=== PATIENT | female | born 1935 | race Caucasian/White ===

== ENCOUNTER 2018-03-05 11:19 | Outpatient (CLI) | payer MEDICARE ==
--- NOTE | 2018-03-05 12:44 | XRAY Report ---
Procedure Date: 03/05/2018 Accession Number: [id number] / [id number] Procedure: XR - Calcaneus RT CPT Code: FULL RESULT: EXAM: Calcaneus RT DATE: 03/05/2018 11:58 AM CLINICAL HISTORY: PAIN EDEMA POSTERIOR R CALCANOUS COMPARISON: None. TECHNIQUE: 2 views. FINDINGS: Bones: There is no fracture or dislocation. Minimal posterior calcaneal enthesopathy is identified. Joints:Normal. No subluxations. Soft Tissues: Mild soft tissue swelling is seen at the distal insertion site of the Achilles tendon. IMPRESSION: Minimal posterior calcaneal enthesopathy with soft tissue swelling over the distal insertion of the Achilles tendon. RADIA
== END 2018-03-05 11:20 | disposition home or self-care (01) ==
LOC: DI 11:19
PROVIDERS: ATTEND Podiatrist
DX: M77.51 Other enthesopathy of right foot and ankle (principal); R22.41 Localized swelling, mass and lump, right lower limb

== ENCOUNTER 2018-04-19 10:46 | Emergency (ER) | payer MEDICARE ==
--- NOTE | 2018-04-19 12:34 | ED Physician Documentation ---
PD HPI CHEST PAIN - Stated complaint Stated Complaint: SOA - Chief complaint Chief Complaint: Cardiac - History obtained from History obtained from: Patient - History of Present Illness Timing - onset: Last night (She has been short of breath for a few days. Last night at 4 AM she had a brief episode of chest pain radiating to the back. Her medics were summoned and she was noted to be in A. fib which he does not have a prior history of. She declined transport to the hospital because she felt much better. However when she called her physician's office to make an appointment today and encouraged her to come to the ER for an evaluation. She feels fine now and she is not actively short of breath. She denies pedal edema or calf pain. She has no history of heart problems.) Review of Systems Constitutional: denies: Fever, Chills, Fatigue Cardiac: denies: Palpitations, Pedal edema, Calf pain Respiratory: reports: Dyspnea. denies: Cough, Hemoptysis, Wheezing GI: denies: Abdominal Pain, Nausea, Vomiting PD PAST MEDICAL HISTORY - Allergies Allergies/Adverse Reactions: Allergies Allergy/AdvReac Type Severity Reaction Status Date / Time codeine AdvReac Itching Verified 04/19/18 10:52 PD ED PE NORMAL - Vitals Vital signs reviewed: Yes - General General: Alert and oriented X 3, No acute distress - Neck Neck: Supple, no meningeal sign, No bony TTP - Cardiac Cardiac: RRR, No murmur - Respiratory Respiratory: No respiratory distress, Clear bilaterally - Abdomen Abdomen: Non tender - Extremities Extremities: No edema, No calf tenderness / cord - Neuro Neuro: Alert and oriented X 3, Normal speech Results - Vitals Vitals: Vital Signs - 24 hr 04/19/18 04/19/18 04/19/18 10:48 13:31 13:38 Temperature 36 C L 36.5 C Heart Rate 58 L 51 L 50 L Respiratory 16 16 16 Rate Blood Pressure 122/69 145/64 H 118/60 O2 Saturation 99 96 98 Oxygen O2 Source Room air - EKG (time done) 1102 Rate: Rate (enter#) (57) Rhythm: NSR Intervals: Prolonged NC (238msec) QRS: Normal Ischemia: Normal ST segments Computer interpretation: Agree with computer - Labs Labs: Laboratory Tests 04/19/18 04/19/18 04/19/18 12:39 12:39 12:39 WBC 7.2 RBC 4.63 Hgb 14.4 Hct 42.3 MCV 91.3 MCH 31.1 H MCHC 34.1 RDW 13.8 Plt Count 247 MPV 7.2 L Neut # (Auto) 4.7 Lymph # (Auto) 2.0 [place] # (Auto) 0.3 Eos # (Auto) 0.1 Baso # (Auto) 0.1 Absolute Nucleated RBC 0.00 Nucleated RBC % 0.0 Sodium 138 Potassium 4.5 Chloride 101 Carbon Dioxide 28 Anion Gap 9.0 BUN 11 Creatinine 0.6 Estimated GFR (MDRD) 96 Glucose 105 H Calcium 9.2 Magnesium 2.3 Total Bilirubin 1.0 AST 20 ALT 15 Alkaline Phosphatase 60 Troponin I < 0.04 Total Protein 6.8 Albumin 4.2 Globulin 2.6 Albumin/Globulin Ratio 1.6 Lipase 35 TSH 04/19/18 12:39 WBC RBC Hgb Hct MCV MCH MCHC RDW Plt Count MPV Neut # (Auto) Lymph # (Auto) [place] # (Auto) Eos # (Auto) Baso # (Auto) Absolute Nucleated RBC Nucleated RBC % Sodium Potassium Chloride Carbon Dioxide Anion Gap BUN Creatinine Estimated GFR (MDRD) Glucose Calcium Magnesium Total Bilirubin AST ALT Alkaline Phosphatase Troponin I Total Protein Albumin Globulin Albumin/Globulin Ratio Lipase TSH 3.07 PD MEDICAL DECISION MAKING - ED course ED course: She had an episode of A. fib last night. There is no symptoms now, and her evaluation is normal. Primary care follow-up was advised for consideration for further testing and anticoagulation. - Sepsis Event Vital Signs: Vital Signs - 24 hr 04/19/18 04/19/18 04/19/18 10:48 13:31 13:38 Temperature 36 C L 36.5 C Heart Rate 58 L 51 L 50 L Respiratory 16 16 16 Rate Blood Pressure 122/69 145/64 H 118/60 O2 Saturation 99 96 98 Oxygen O2 Source Room air Departure - Departure Disposition: 01 Home, Self Care Clinical Impression: Atrial fibrillation, Essential hypertension Condition: Good Record reviewed to determine appropriate education?: Yes Instructions: Atrial Fibrillation Dc Comments: Call your doctor to arrange a follow-up appointment, make the next available appointment. In the interim, return anytime if worse or if new symptoms develop. Discharge Date/Time: 04/19/18 13:38
[2018-04-19 12:47] LABS: BASOPHILS # (AUTO) 0.1 10^3/uL (0.0-0.1); EOSINOPHILS # (AUTO) 0.1 10^3/uL (0.0-0.7); EOSINOPHILS % (AUTO) 1.2 %; HGB - HEMOGLOBIN 14.4 g/dL (12.0-16.0); LYMPHOCYTES % (AUTO) 27.5 %; MEAN CORPUSCULAR HEMOGLOBIN 31.1 pg (27.0-31.0); MEAN CORPUSCULAR HGB CONC 34.1 g/dL (32.0-36.0); MEAN CORPUSCULAR VOLUME 91.3 fL (81.0-99.0); MEAN PLATELET VOLUME 7.2 fL (7.9-10.8); MONOCYTES # (AUTO) 0.3 10^3/uL (0.0-1.0); MONOCYTES % (AUTO) 4.7 %; NEUTROPHILS # (AUTO) 4.7 10^3/uL (1.5-6.6); NEUTROPHILS % (AUTO) 65.6 %; PLT - PLATELET COUNT 247 10^3/uL (130-450); RED BLOOD COUNT 4.63 10^6/uL (4.20-5.40); RED CELL DISTRIBUTION WIDTH 13.8 % (12.0-15.0); WHITE BLOOD COUNT 7.2 x10^3/uL (4.8-10.8)
[2018-04-19 13:00] LABS: ALBUMIN 4.2 g/dL (3.2-5.5); ALBUMIN/GLOBULIN RATIO 1.6 (1.0-2.2); CREATININE 0.6 mg/dL (0.4-1.0); MAGNESIUM 2.3 mg/dL (1.7-2.8); TOTAL PROTEIN 6.8 g/dL (6.7-8.2)
[2018-04-19 13:26] LABS: CALCIUM 9.2 mg/dL (8.5-10.3)
--- NOTE | 2018-04-19 13:31 | XRAY Report ---
Reason: dyspnea Procedure Date: 04/19/2018 Accession Number: [id number] / [id number] Procedure: XR - Chest 2 View X-Ray CPT Code: 31102 FULL RESULT: EXAM: CHEST RADIOGRAPHY EXAM DATE: 04/19/2018 01:17 PM. CLINICAL HISTORY: Dyspnea. COMPARISON: XR CHEST 1 VIEWS 02/09/2011. TECHNIQUE: 2 views. FINDINGS: Lungs/Pleura: There is very mild blunting of the posterior right costophrenic angle. There is no consolidative process. Negative for pulmonary edema and pneumothorax. The lung volumes are normal. Mediastinum: The heart size is normal. There is mild aortic arch atherosclerotic calcification. Other: None. IMPRESSION: 1. Very small right-sided pleural effusion. Otherwise negative. RADIA
[2018-04-19 13:39] VITALS: BP 118/60
== END 2018-04-19 13:38 | disposition home or self-care (01) ==
LOC: ED 10:46
DX: I48.91 Unspecified atrial fibrillation (principal); I10 Essential (primary) hypertension
CPT/HCPCS: 36415; 71046; 80053; 83690; 83735; 84443; 84484; 85025; 93005; 99283

== ENCOUNTER 2018-10-01 08:31 | Outpatient (CLI) | payer MEDICARE | END 2018-10-01 08:32 | LOC: LAB.F 08:31 | PROVIDERS: ATTEND Internal Medicine Cardiovascular Disease | DX: I48.1 Persistent atrial fibrillation (principal) | CPT/HCPCS: 36415; 85610 ==

== ENCOUNTER 2018-10-04 09:06 | Outpatient (CLI) | payer MEDICARE | END 2018-10-04 09:07 | disposition home or self-care (01) | LOC: LAB.F 09:06 | PROVIDERS: ATTEND Internal Medicine Cardiovascular Disease | DX: I48.1 Persistent atrial fibrillation (principal) | CPT/HCPCS: 85610 ==

== ENCOUNTER 2018-10-08 08:39 | Outpatient (CLI) | payer MEDICARE | END 2018-10-08 08:40 | disposition home or self-care (01) | LOC: LAB.F 08:39 | PROVIDERS: ATTEND Internal Medicine Cardiovascular Disease | DX: I48.1 Persistent atrial fibrillation (principal) | CPT/HCPCS: 85610 ==

== ENCOUNTER 2018-10-11 09:59 | Outpatient (CLI) | payer MEDICARE | END 2018-10-11 10:00 | disposition home or self-care (01) | LOC: LAB.F 09:59 | PROVIDERS: ATTEND Internal Medicine Cardiovascular Disease | DX: I48.1 Persistent atrial fibrillation (principal) | CPT/HCPCS: 85610 ==

== ENCOUNTER 2018-10-23 09:46 | Outpatient (CLI) | payer MEDICARE | END 2018-10-23 09:47 | disposition home or self-care (01) | LOC: LAB.F 09:46 | PROVIDERS: ATTEND Internal Medicine Cardiovascular Disease | DX: I48.1 Persistent atrial fibrillation (principal) | CPT/HCPCS: 85610 ==

== ENCOUNTER 2018-10-30 09:18 | Outpatient (CLI) | payer MEDICARE | END 2018-10-30 09:19 | disposition home or self-care (01) | LOC: LAB.F 09:18 | PROVIDERS: ATTEND Internal Medicine Cardiovascular Disease | DX: I48.1 Persistent atrial fibrillation (principal) | CPT/HCPCS: 85610 ==

== ENCOUNTER 2018-11-06 09:51 | Outpatient (CLI) | payer MEDICARE | END 2018-11-06 09:52 | disposition home or self-care (01) | LOC: LAB.F 09:51 | PROVIDERS: ATTEND Internal Medicine Cardiovascular Disease | DX: I48.1 Persistent atrial fibrillation (principal) | CPT/HCPCS: 85610 ==

== ENCOUNTER 2018-11-13 08:21 | Outpatient (CLI) | payer MEDICARE | END 2018-11-13 08:22 | disposition home or self-care (01) | LOC: LAB.F 08:21 | PROVIDERS: ATTEND Internal Medicine Cardiovascular Disease | DX: I48.1 Persistent atrial fibrillation (principal) | CPT/HCPCS: 85610 ==

== ENCOUNTER 2018-11-22 08:01 | Outpatient (CLI) | payer MEDICARE | END 2018-11-22 08:02 | disposition home or self-care (01) | LOC: LAB.F 08:01 | PROVIDERS: ATTEND Internal Medicine Cardiovascular Disease | DX: I48.1 Persistent atrial fibrillation (principal) | CPT/HCPCS: 85610 ==

== ENCOUNTER 2018-12-06 08:08 | Outpatient (CLI) | payer MEDICARE | END 2018-12-06 08:09 | disposition home or self-care (01) | LOC: LAB.F 08:08 | PROVIDERS: ATTEND Internal Medicine Cardiovascular Disease | DX: I48.1 Persistent atrial fibrillation (principal) | CPT/HCPCS: 85610 ==

== ENCOUNTER 2018-12-21 10:09 | Outpatient (CLI) | payer MEDICARE | END 2018-12-21 10:10 | disposition home or self-care (01) | LOC: LAB.F 10:09 | PROVIDERS: ATTEND Internal Medicine Cardiovascular Disease | DX: I48.1 Persistent atrial fibrillation (principal) | CPT/HCPCS: 85610 ==

== ENCOUNTER 2019-01-04 10:23 | Outpatient (CLI) | payer MEDICARE | END 2019-01-04 10:24 | disposition home or self-care (01) | LOC: LAB.F 10:23 | PROVIDERS: ATTEND Internal Medicine Cardiovascular Disease | DX: I48.1 Persistent atrial fibrillation (principal) | CPT/HCPCS: 85610 ==

== ENCOUNTER 2019-01-18 10:26 | Outpatient (CLI) | payer MEDICARE | END 2019-01-18 10:27 | disposition home or self-care (01) | LOC: LAB.F 10:26 | PROVIDERS: ATTEND Internal Medicine Cardiovascular Disease | DX: I48.1 Persistent atrial fibrillation (principal) | CPT/HCPCS: 85610 ==

== ENCOUNTER 2019-01-21 09:12 | Outpatient (CLI) | payer MEDICARE | END 2019-01-21 09:13 | disposition home or self-care (01) | LOC: LAB.F 09:12 | PROVIDERS: ATTEND Internal Medicine Cardiovascular Disease | DX: I48.1 Persistent atrial fibrillation (principal) | CPT/HCPCS: 85610 ==

== ENCOUNTER 2019-02-04 10:51 | Outpatient (CLI) | payer MEDICARE | END 2019-02-04 10:52 | disposition home or self-care (01) | LOC: LAB.F 10:51 | PROVIDERS: ATTEND Internal Medicine Cardiovascular Disease | DX: I48.91 Unspecified atrial fibrillation (principal) | CPT/HCPCS: 85610 ==

== ENCOUNTER 2019-02-18 09:27 | Outpatient (CLI) | payer MEDICARE | END 2019-02-18 09:28 | disposition home or self-care (01) | LOC: LAB.S 09:27 | PROVIDERS: ATTEND Internal Medicine Cardiovascular Disease | DX: I48.1 Persistent atrial fibrillation (principal) | CPT/HCPCS: 85610 ==

== ENCOUNTER 2019-03-25 09:16 | Outpatient (CLI) | payer MEDICARE | END 2019-03-25 09:17 | disposition home or self-care (01) | LOC: LAB.S 09:16 | PROVIDERS: ATTEND Internal Medicine Cardiovascular Disease | DX: I48.1 Persistent atrial fibrillation (principal) | CPT/HCPCS: 85610 ==

== ENCOUNTER 2019-04-22 09:44 | Outpatient (CLI) | payer MEDICARE | END 2019-04-22 09:45 | disposition home or self-care (01) | LOC: LAB.S 09:44 | PROVIDERS: ATTEND Internal Medicine Cardiovascular Disease | DX: I48.1 Persistent atrial fibrillation (principal) | CPT/HCPCS: 85610 ==

== ENCOUNTER 2019-05-13 11:11 | Outpatient (CLI) | payer MEDICARE | END 2019-05-13 11:12 | disposition home or self-care (01) | LOC: LAB.S 11:11 | PROVIDERS: ATTEND Internal Medicine Cardiovascular Disease | DX: I48.91 Unspecified atrial fibrillation (principal) | CPT/HCPCS: 85610 ==

== ENCOUNTER 2019-05-27 09:45 | Outpatient (CLI) | payer MEDICARE | END 2019-05-27 09:46 | disposition home or self-care (01) | LOC: LAB.S 09:45 | PROVIDERS: ATTEND Internal Medicine Cardiovascular Disease | DX: I48.91 Unspecified atrial fibrillation (principal) | CPT/HCPCS: 85610 ==

== ENCOUNTER 2019-06-10 09:40 | Outpatient (CLI) | payer MEDICARE | END 2019-06-10 09:41 | disposition home or self-care (01) | LOC: LAB.S 09:40 | PROVIDERS: ATTEND Internal Medicine Cardiovascular Disease | DX: I48.91 Unspecified atrial fibrillation (principal) | CPT/HCPCS: 85610 ==

== ENCOUNTER 2019-07-01 09:29 | Outpatient (CLI) | payer MEDICARE | END 2019-07-01 09:30 | disposition home or self-care (01) | LOC: LAB.S 09:29 | PROVIDERS: ATTEND Internal Medicine Cardiovascular Disease | DX: I48.91 Unspecified atrial fibrillation (principal) | CPT/HCPCS: 85610 ==

== ENCOUNTER 2019-07-29 09:07 | Outpatient (CLI) | payer MEDICARE | END 2019-07-29 09:08 | disposition home or self-care (01) | LOC: LAB.S 09:07 | PROVIDERS: ATTEND Internal Medicine Cardiovascular Disease | DX: I48.91 Unspecified atrial fibrillation (principal) | CPT/HCPCS: 85610 ==

== ENCOUNTER 2019-08-26 11:09 | Outpatient (CLI) | payer MEDICARE | END 2019-08-26 11:10 | disposition home or self-care (01) | LOC: LAB.S 11:09 | PROVIDERS: ATTEND Internal Medicine Cardiovascular Disease | DX: I48.91 Unspecified atrial fibrillation (principal) | CPT/HCPCS: 85610 ==

== ENCOUNTER 2019-10-01 09:15 | Outpatient (CLI) | payer MEDICARE | END 2019-10-01 09:16 | disposition home or self-care (01) | LOC: LAB.S 09:15 | PROVIDERS: ATTEND Internal Medicine Cardiovascular Disease | DX: I48.91 Unspecified atrial fibrillation (principal) | CPT/HCPCS: 85610 ==

== ENCOUNTER 2019-10-15 09:16 | Outpatient (CLI) | payer MEDICARE | END 2019-10-15 09:17 | disposition home or self-care (01) | LOC: LAB.S 09:16 | PROVIDERS: ATTEND Internal Medicine Cardiovascular Disease | DX: I48.91 Unspecified atrial fibrillation (principal) | CPT/HCPCS: 85610 ==

== ENCOUNTER 2019-11-12 12:44 | Outpatient (CLI) | payer MEDICARE | END 2019-11-12 12:45 | disposition home or self-care (01) | LOC: LAB 12:44 | PROVIDERS: ATTEND Internal Medicine Cardiovascular Disease | DX: I48.91 Unspecified atrial fibrillation (principal) | CPT/HCPCS: 85610 ==

== ENCOUNTER 2019-12-03 10:02 | Outpatient (CLI) | payer MEDICARE | END 2019-12-03 10:03 | disposition home or self-care (01) | LOC: LAB 10:02 | PROVIDERS: ATTEND Internal Medicine Cardiovascular Disease | DX: I48.91 Unspecified atrial fibrillation (principal) | CPT/HCPCS: 85610 ==

== ENCOUNTER 2019-12-24 10:50 | Outpatient (CLI) | payer MEDICARE | END 2019-12-24 10:51 | disposition home or self-care (01) | LOC: LAB 10:50 | PROVIDERS: ATTEND Internal Medicine Cardiovascular Disease | DX: I48.91 Unspecified atrial fibrillation (principal) | CPT/HCPCS: 85610 ==

== ENCOUNTER 2020-02-11 08:59 | Outpatient (CLI) | payer MEDICARE | END 2020-02-11 09:00 | disposition home or self-care (01) | LOC: LAB.S 08:59 | PROVIDERS: ATTEND Internal Medicine Cardiovascular Disease | DX: I48.91 Unspecified atrial fibrillation (principal) | CPT/HCPCS: 85610 ==

== ENCOUNTER 2020-03-11 09:41 | Outpatient (CLI) | payer MEDICARE | END 2020-03-11 09:42 | disposition home or self-care (01) | LOC: LAB.S 09:41 | PROVIDERS: ATTEND Internal Medicine Cardiovascular Disease | DX: I48.91 Unspecified atrial fibrillation (principal) | CPT/HCPCS: 85610 ==

== ENCOUNTER 2020-04-07 10:24 | Outpatient (CLI) | payer MEDICARE | END 2020-04-07 10:25 | disposition home or self-care (01) | LOC: LAB.S 10:24 | PROVIDERS: ATTEND Internal Medicine Cardiovascular Disease | DX: I48.91 Unspecified atrial fibrillation (principal) | CPT/HCPCS: 85610 ==

== ENCOUNTER 2020-06-02 10:36 | Outpatient (CLI) | payer MEDICARE | END 2020-06-02 10:37 | disposition home or self-care (01) | LOC: LAB.S 10:36 | PROVIDERS: ATTEND Internal Medicine Cardiovascular Disease | DX: I48.91 Unspecified atrial fibrillation (principal) | CPT/HCPCS: 85610 ==

== ENCOUNTER 2020-06-23 10:26 | Outpatient (CLI) | payer MEDICARE | END 2020-06-23 10:27 | disposition home or self-care (01) | LOC: LAB.S 10:26 | PROVIDERS: ATTEND Internal Medicine Cardiovascular Disease | DX: I48.91 Unspecified atrial fibrillation (principal) | CPT/HCPCS: 85610 ==

== ENCOUNTER 2020-07-21 09:08 | Outpatient (CLI) | payer MEDICARE | END 2020-07-21 09:09 | disposition home or self-care (01) | LOC: LAB.S 09:08 | PROVIDERS: ATTEND Internal Medicine Cardiovascular Disease | DX: I48.91 Unspecified atrial fibrillation (principal) | CPT/HCPCS: 85610 ==

== ENCOUNTER 2020-08-18 10:18 | Outpatient (CLI) | payer MEDICARE | END 2020-08-18 10:19 | disposition home or self-care (01) | LOC: LAB.S 10:18 | PROVIDERS: ATTEND Internal Medicine Cardiovascular Disease | DX: I48.91 Unspecified atrial fibrillation (principal) | CPT/HCPCS: 85610 ==

== ENCOUNTER 2020-09-15 10:42 | Outpatient (CLI) | payer MEDICARE | END 2020-09-15 10:43 | disposition home or self-care (01) | LOC: LAB.S 10:42 | PROVIDERS: ATTEND Internal Medicine | DX: I48.91 Unspecified atrial fibrillation (principal) | CPT/HCPCS: 85610 ==

== ENCOUNTER 2020-10-13 09:17 | Outpatient (CLI) | payer MEDICARE | END 2020-10-13 09:18 | disposition home or self-care (01) | LOC: LAB.S 09:17 | PROVIDERS: ATTEND Internal Medicine Cardiovascular Disease | DX: I48.91 Unspecified atrial fibrillation (principal) | CPT/HCPCS: 85610 ==

== ENCOUNTER 2020-11-10 09:04 | Outpatient (CLI) | payer MEDICARE | END 2020-11-10 09:05 | disposition home or self-care (01) | LOC: LAB.S 09:04 | PROVIDERS: ATTEND Internal Medicine Cardiovascular Disease | DX: I48.91 Unspecified atrial fibrillation (principal) | CPT/HCPCS: 85610 ==

== ENCOUNTER 2020-12-08 09:11 | Outpatient (CLI) | payer MEDICARE | END 2020-12-08 09:12 | disposition home or self-care (01) | LOC: LAB.S 09:11 | PROVIDERS: ATTEND Internal Medicine Cardiovascular Disease | DX: I48.91 Unspecified atrial fibrillation (principal) | CPT/HCPCS: 36416; 85610 ==

== ENCOUNTER 2021-01-05 09:31 | Outpatient (CLI) | payer MEDICARE | END 2021-01-05 09:32 | disposition home or self-care (01) | LOC: LAB.S 09:31 | PROVIDERS: ATTEND Internal Medicine Cardiovascular Disease | DX: I48.91 Unspecified atrial fibrillation (principal) | CPT/HCPCS: 36416; 85610 ==

== ENCOUNTER 2021-02-02 09:12 | Outpatient (CLI) | payer MEDICARE | END 2021-02-02 09:13 | disposition home or self-care (01) | LOC: LAB.S 09:12 | PROVIDERS: ATTEND Internal Medicine Cardiovascular Disease | DX: I48.91 Unspecified atrial fibrillation (principal) | CPT/HCPCS: 36416; 85610 ==

== ENCOUNTER 2021-03-02 09:11 | Outpatient (CLI) | payer MEDICARE | END 2021-03-02 09:12 | disposition home or self-care (01) | LOC: LAB.S 09:11 | PROVIDERS: ATTEND Internal Medicine Cardiovascular Disease | DX: I48.91 Unspecified atrial fibrillation (principal) | CPT/HCPCS: 36416; 85610 ==

== ENCOUNTER 2021-03-30 08:10 | Outpatient (CLI) | payer MEDICARE | END 2021-03-30 08:11 | disposition home or self-care (01) | LOC: LAB.S 08:10 | PROVIDERS: ATTEND Internal Medicine | DX: I48.91 Unspecified atrial fibrillation (principal) | CPT/HCPCS: 36416; 85610 ==

== ENCOUNTER 2021-04-27 09:03 | Outpatient (CLI) | payer MEDICARE | END 2021-04-27 09:04 | disposition home or self-care (01) | LOC: LAB.S 09:03 | PROVIDERS: ATTEND Internal Medicine Cardiovascular Disease | DX: I48.91 Unspecified atrial fibrillation (principal) | CPT/HCPCS: 36416; 85610 ==

== ENCOUNTER 2021-05-25 09:14 | Outpatient (CLI) | payer MEDICARE | END 2021-05-25 09:15 | disposition home or self-care (01) | LOC: LAB.S 09:14 | PROVIDERS: ATTEND Internal Medicine Cardiovascular Disease | DX: I48.91 Unspecified atrial fibrillation (principal) | CPT/HCPCS: 36416; 85610 ==

== ENCOUNTER 2021-06-01 09:08 | Outpatient (CLI) | payer MEDICARE | END 2021-06-01 09:09 | disposition home or self-care (01) | LOC: LAB.S 09:08 | PROVIDERS: ATTEND Internal Medicine Cardiovascular Disease | DX: I48.91 Unspecified atrial fibrillation (principal) | CPT/HCPCS: 36416; 85610 ==

== ENCOUNTER 2021-06-15 09:39 | Outpatient (CLI) | payer MEDICARE | END 2021-06-15 09:40 | disposition home or self-care (01) | LOC: LAB.S 09:39 | PROVIDERS: ATTEND Internal Medicine Cardiovascular Disease | DX: I48.91 Unspecified atrial fibrillation (principal) | CPT/HCPCS: 36416; 85610 ==

== ENCOUNTER 2021-06-29 09:05 | Outpatient (CLI) | payer MEDICARE | END 2021-06-29 09:06 | disposition home or self-care (01) | LOC: LAB.S 09:05 | PROVIDERS: ATTEND Internal Medicine Cardiovascular Disease | DX: I48.91 Unspecified atrial fibrillation (principal) | CPT/HCPCS: 36416; 85610 ==

== ENCOUNTER 2021-07-20 09:03 | Outpatient (CLI) | payer MEDICARE | END 2021-07-20 09:04 | disposition home or self-care (01) | LOC: LAB.S 09:03 | PROVIDERS: ATTEND Internal Medicine Cardiovascular Disease | DX: I48.91 Unspecified atrial fibrillation (principal) | CPT/HCPCS: 36416; 85610 ==

== ENCOUNTER 2021-08-17 09:04 | Outpatient (CLI) | payer MEDICARE | END 2021-08-17 09:05 | disposition home or self-care (01) | LOC: LAB.S 09:04 | PROVIDERS: ATTEND Internal Medicine Cardiovascular Disease | DX: I48.91 Unspecified atrial fibrillation (principal) | CPT/HCPCS: 36416; 85610 ==

== ENCOUNTER 2021-09-14 10:57 | Outpatient (CLI) | payer MEDICARE | END 2021-09-14 10:58 | disposition home or self-care (01) | LOC: LAB.S 10:57 | PROVIDERS: ATTEND Internal Medicine Cardiovascular Disease | DX: I48.91 Unspecified atrial fibrillation (principal) | CPT/HCPCS: 36416; 85610 ==

== ENCOUNTER 2021-10-12 09:05 | Outpatient (CLI) | payer MEDICARE | END 2021-10-12 09:06 | disposition home or self-care (01) | LOC: LAB.S 09:05 | PROVIDERS: ATTEND Internal Medicine Cardiovascular Disease | DX: I48.91 Unspecified atrial fibrillation (principal) | CPT/HCPCS: 36416; 85610 ==

== ENCOUNTER 2021-11-09 07:58 | Outpatient (CLI) | payer MEDICARE | END 2021-11-09 07:59 | disposition home or self-care (01) | LOC: LAB.S 07:58 | PROVIDERS: ATTEND Internal Medicine Cardiovascular Disease | DX: I48.91 Unspecified atrial fibrillation (principal) | CPT/HCPCS: 36416; 85610 ==

== ENCOUNTER 2021-11-30 09:09 | Outpatient (CLI) | payer MEDICARE | END 2021-11-30 09:10 | disposition home or self-care (01) | LOC: LAB.S 09:09 | PROVIDERS: ATTEND Internal Medicine Cardiovascular Disease | DX: I48.91 Unspecified atrial fibrillation (principal) | CPT/HCPCS: 36416; 85610 ==

== ENCOUNTER 2021-12-28 09:00 | Outpatient (CLI) | payer MEDICARE | END 2021-12-28 09:01 | disposition home or self-care (01) | LOC: LAB.S 09:00 | PROVIDERS: ATTEND Internal Medicine Cardiovascular Disease | DX: I48.91 Unspecified atrial fibrillation (principal) | CPT/HCPCS: 36416; 85610 ==

== ENCOUNTER 2022-01-25 08:58 | Outpatient (CLI) | payer MEDICARE | END 2022-01-25 08:59 | disposition home or self-care (01) | LOC: LAB.S 08:58 | PROVIDERS: ATTEND Internal Medicine Cardiovascular Disease | DX: I48.91 Unspecified atrial fibrillation (principal) | CPT/HCPCS: 36416; 85610 ==

== ENCOUNTER 2022-02-22 08:58 | Outpatient (CLI) | payer MEDICARE | END 2022-02-22 08:59 | disposition home or self-care (01) | LOC: LAB.S 08:58 | PROVIDERS: ATTEND Internal Medicine Cardiovascular Disease | DX: I48.91 Unspecified atrial fibrillation (principal) | CPT/HCPCS: 36416; 85610 ==

== ENCOUNTER 2022-04-19 11:21 | Outpatient (CLI) | payer MEDICARE | END 2022-04-19 11:22 | disposition home or self-care (01) | LOC: LAB.S 11:21 | PROVIDERS: ATTEND Internal Medicine Cardiovascular Disease | DX: I48.91 Unspecified atrial fibrillation (principal) | CPT/HCPCS: 36416; 85610 ==

== ENCOUNTER 2022-05-17 08:48 | Outpatient (CLI) | payer MEDICARE | END 2022-05-17 08:49 | disposition home or self-care (01) | LOC: LAB.S 08:48 | PROVIDERS: ATTEND Internal Medicine Cardiovascular Disease | DX: I48.91 Unspecified atrial fibrillation (principal) | CPT/HCPCS: 36416; 85610 ==

== ENCOUNTER 2022-06-15 13:55 | Outpatient (CLI) | payer MEDICARE | END 2022-06-15 13:56 | disposition home or self-care (01) | LOC: LAB.S 13:55 | PROVIDERS: ATTEND Internal Medicine Cardiovascular Disease | DX: I48.91 Unspecified atrial fibrillation (principal) | CPT/HCPCS: 36416; 85610 ==

== ENCOUNTER 2022-07-12 11:24 | Outpatient (CLI) | payer MEDICARE | END 2022-07-12 11:25 | disposition home or self-care (01) | LOC: LAB.S 11:24 | PROVIDERS: ATTEND Internal Medicine Cardiovascular Disease | DX: I48.91 Unspecified atrial fibrillation (principal) | CPT/HCPCS: 36416; 85610 ==

== ENCOUNTER 2022-08-09 08:56 | Outpatient (CLI) | payer MEDICARE | END 2022-08-09 08:57 | disposition home or self-care (01) | LOC: LAB.S 08:56 | PROVIDERS: ATTEND Internal Medicine Cardiovascular Disease | DX: I48.91 Unspecified atrial fibrillation (principal) | CPT/HCPCS: 36416; 85610 ==

== ENCOUNTER 2022-08-26 13:53 | Outpatient (CLI) | payer MEDICARE | END 2022-08-26 13:54 | disposition home or self-care (01) | LOC: LAB.S 13:53 | PROVIDERS: ATTEND Internal Medicine Cardiovascular Disease | DX: I48.91 Unspecified atrial fibrillation (principal) | CPT/HCPCS: 36416; 85610 ==

== ENCOUNTER 2022-09-20 11:58 | Outpatient (CLI) | payer MEDICARE | END 2022-09-20 11:59 | disposition home or self-care (01) | LOC: LAB.S 11:58 | PROVIDERS: ATTEND Internal Medicine Cardiovascular Disease | DX: I48.91 Unspecified atrial fibrillation (principal) | CPT/HCPCS: 36416; 85610 ==

== ENCOUNTER 2022-10-18 09:01 | Outpatient (CLI) | payer MEDICARE | END 2022-10-18 09:02 | disposition home or self-care (01) | LOC: LAB.S 09:01 | PROVIDERS: ATTEND Internal Medicine Cardiovascular Disease | DX: I48.91 Unspecified atrial fibrillation (principal) | CPT/HCPCS: 36416; 85610 ==

== ENCOUNTER 2022-10-27 09:44 | Outpatient (CLI) | payer MEDICARE | END 2022-10-27 09:45 | disposition home or self-care (01) | LOC: LAB.S 09:44 | PROVIDERS: ATTEND Internal Medicine Cardiovascular Disease | DX: I48.91 Unspecified atrial fibrillation (principal) | CPT/HCPCS: 36416; 85610 ==

== ENCOUNTER 2022-11-08 08:53 | Outpatient (CLI) | payer MEDICARE | END 2022-11-08 08:54 | disposition home or self-care (01) | LOC: LAB.S 08:53 | PROVIDERS: ATTEND Internal Medicine Cardiovascular Disease | DX: I48.91 Unspecified atrial fibrillation (principal) | CPT/HCPCS: 36416; 85610 ==

== ENCOUNTER 2022-11-30 09:57 | Outpatient (CLI) | payer MEDICARE | END 2022-11-30 09:58 | disposition home or self-care (01) | LOC: LAB.S 09:57 | PROVIDERS: ATTEND Internal Medicine Cardiovascular Disease | DX: I48.91 Unspecified atrial fibrillation (principal) | CPT/HCPCS: 36416; 85610 ==

== ENCOUNTER 2023-01-04 10:03 | Outpatient (CLI) | payer MEDICARE | END 2023-01-04 10:04 | disposition home or self-care (01) | LOC: LAB.S 10:03 | PROVIDERS: ATTEND Internal Medicine Cardiovascular Disease | DX: I48.91 Unspecified atrial fibrillation (principal) | CPT/HCPCS: 36416; 85610 ==

== ENCOUNTER 2023-01-31 08:51 | Outpatient (CLI) | payer MEDICARE | END 2023-01-31 08:52 | disposition home or self-care (01) | LOC: LAB.S 08:51 | PROVIDERS: ATTEND Internal Medicine Cardiovascular Disease | DX: I48.91 Unspecified atrial fibrillation (principal) | CPT/HCPCS: 36416; 85610 ==

== ENCOUNTER 2023-02-28 08:55 | Outpatient (CLI) | payer MEDICARE | END 2023-02-28 08:56 | disposition home or self-care (01) | LOC: LAB.S 08:55 | PROVIDERS: ATTEND Internal Medicine Cardiovascular Disease | DX: I48.91 Unspecified atrial fibrillation (principal) | CPT/HCPCS: 36415; 36416; 85610 ==

== ENCOUNTER 2023-03-27 10:20 | Outpatient (CLI) | payer MEDICARE | END 2023-03-27 10:21 | disposition home or self-care (01) | LOC: LAB.S 10:20 | PROVIDERS: ATTEND Internal Medicine Cardiovascular Disease | DX: I48.91 Unspecified atrial fibrillation (principal) | CPT/HCPCS: 36416; 85610 ==

== ENCOUNTER 2023-04-03 11:12 | Outpatient (CLI) | payer MEDICARE | END 2023-04-03 11:13 | disposition home or self-care (01) | LOC: LAB.S 11:12 | PROVIDERS: ATTEND Internal Medicine Cardiovascular Disease | DX: I48.91 Unspecified atrial fibrillation (principal) | CPT/HCPCS: 36416; 85610 ==

== ENCOUNTER 2023-04-17 11:57 | Outpatient (CLI) | payer MEDICARE | END 2023-04-17 11:58 | disposition home or self-care (01) | LOC: LAB.S 11:57 | PROVIDERS: ATTEND Internal Medicine Cardiovascular Disease | DX: I48.91 Unspecified atrial fibrillation (principal) | CPT/HCPCS: 36416; 85610 ==

== ENCOUNTER 2023-04-26 09:52 | Outpatient (CLI) | payer MEDICARE | END 2023-04-26 09:53 | disposition home or self-care (01) | LOC: LAB.S 09:52 | PROVIDERS: ATTEND Internal Medicine Cardiovascular Disease | DX: I48.91 Unspecified atrial fibrillation (principal) | CPT/HCPCS: 36416; 85610 ==

== ENCOUNTER 2023-05-10 09:56 | Outpatient (CLI) | payer MEDICARE | END 2023-05-10 09:57 | disposition home or self-care (01) | LOC: LAB.S 09:56 | PROVIDERS: ATTEND Internal Medicine Cardiovascular Disease | DX: I48.91 Unspecified atrial fibrillation (principal) | CPT/HCPCS: 36416; 85610 ==

== ENCOUNTER 2023-05-29 12:44 | Outpatient (CLI) | payer MEDICARE | END 2023-05-29 12:45 | disposition home or self-care (01) | LOC: LAB.S 12:44 | PROVIDERS: ATTEND Internal Medicine Cardiovascular Disease | DX: I48.91 Unspecified atrial fibrillation (principal) | CPT/HCPCS: 36416; 85610 ==

== ENCOUNTER 2023-07-25 09:40 | Outpatient (CLI) | payer MEDICARE | END 2023-07-25 09:41 | disposition home or self-care (01) | LOC: LAB.S 09:40 | PROVIDERS: ATTEND Internal Medicine Cardiovascular Disease | DX: I48.91 Unspecified atrial fibrillation (principal) | CPT/HCPCS: 36416; 85610 ==

== ENCOUNTER 2023-08-22 10:03 | Outpatient (CLI) | payer MEDICARE | END 2023-08-22 10:04 | disposition home or self-care (01) | LOC: LAB.S 10:03 | PROVIDERS: ATTEND Internal Medicine Cardiovascular Disease | DX: I48.91 Unspecified atrial fibrillation (principal) | CPT/HCPCS: 36416; 85610 ==

== ENCOUNTER 2023-09-18 11:09 | Outpatient (CLI) | payer MEDICARE | END 2023-09-18 11:10 | disposition home or self-care (01) | LOC: LAB.S 11:09 | PROVIDERS: ATTEND Internal Medicine Cardiovascular Disease | DX: I48.91 Unspecified atrial fibrillation (principal) | CPT/HCPCS: 36416; 85610 ==

== ENCOUNTER 2023-10-23 11:46 | Outpatient (CLI) | payer MEDICARE | END 2023-10-23 11:47 | disposition home or self-care (01) | LOC: LAB.S 11:46 | PROVIDERS: ATTEND Internal Medicine Cardiovascular Disease | DX: I48.91 Unspecified atrial fibrillation (principal) | CPT/HCPCS: 36416; 85610 ==

== ENCOUNTER 2023-11-27 10:00 | Outpatient (CLI) | payer MEDICARE | END 2023-11-27 10:01 | disposition home or self-care (01) | LOC: LAB.S 10:00 | PROVIDERS: ATTEND Internal Medicine Cardiovascular Disease | DX: I48.91 Unspecified atrial fibrillation (principal) | CPT/HCPCS: 36416; 85610 ==

== ENCOUNTER 2024-02-26 13:59 | Outpatient (CLI) | payer MEDICARE ==
[2024-02-26 19:56] LABS: HGB - HEMOGLOBIN 14.4 g/dL (12.0-16.0); MEAN CORPUSCULAR HEMOGLOBIN 31.4 pg (27.0-31.0); MEAN CORPUSCULAR HGB CONC 32.7 g/dL (32.0-36.0); MEAN CORPUSCULAR VOLUME 95.9 fL (81.0-99.0); MEAN PLATELET VOLUME 9.9 fL (7.9-10.8); RED BLOOD COUNT 4.59 10^6/uL (4.20-5.40); RED CELL DISTRIBUTION WIDTH 13.1 % (12.0-15.0); WHITE BLOOD COUNT 7.6 x10^3/uL (4.8-10.8)
[2024-02-26 20:11] LABS: ALBUMIN 4.2 g/dL (3.2-5.5); ALBUMIN/GLOBULIN RATIO 1.8 (1.0-2.2); ALKALINE PHOSPHATASE 62 IU/L (42-121); ALT ALANINE AMINOTRANSFERASE 8 IU/L (10-60); AST ASPARTATE AMINOTRANSFERASE 14 IU/L (10-42); BILIRUBIN,TOTAL 1.3 mg/dL (0.2-1.0); BUN - BLOOD UREA NITROGEN 13 mg/dL (6-20); CALCIUM 9.5 mg/dL (8.5-10.3); CARBON DIOXIDE - CO2 31 mmol/L (21-32); CHLORIDE 105 mmol/L (101-111); CHOL/HDL RATIO 2.1 (<4.4); CHOLESTEROL 103 mg/dL; CREATININE 0.6 mg/dL (0.6-1.3); GFR - MDRD 94 (>89); GLUCOSE 126 mg/dL (74-104); HDL CHOLESTEROL 49 mg/dL; LDL CHOLESTEROL,CALCULATED 29 mg/dL; LDL/HDL RATIO 0.6 (<4.4); POTASSIUM 3.5 mmol/L (3.5-4.5); SODIUM 141 mmol/L (135-145); TOTAL PROTEIN 6.6 g/dL (6.4-8.9); TRIGLYCERIDES 126 mg/dL; VLDL CHOLESTEROL 25 mg/dL
== END 2024-02-26 14:00 | disposition home or self-care (01) ==
LOC: LAB.S 13:59
PROVIDERS: ATTEND Internal Medicine
DX: I12.9 Hypertensive chronic kidney disease with stage 1 through stage 4 chronic kidney disease, or unspecified chronic kidney disease (principal); N18.2 Chronic kidney disease, stage 2 (mild); N25.81 Secondary hyperparathyroidism of renal origin; E78.2 Mixed hyperlipidemia
CPT/HCPCS: 36415; 80053; 80061; 82306; 83721; 83970; 85027